=== PATIENT | male | born 1995 | race Two or more races ===

== ENCOUNTER 2018-03-17 14:54 | Emergency (ER) | payer SELFPAY ==
[~2018-03-17] VITALS: Ht 175.3 cm; Wt 49.6 kg
[2018-03-17 15:13] VITALS: BP 120/77
== END 2018-03-17 16:29 | disposition home or self-care (01) ==
LOC: ED 16:23
DX: S02.32XA Fracture of orbital floor, left side, initial encounter for closed fracture (principal); H11.32 Conjunctival hemorrhage, left eye; W18.39XA Other fall on same level, initial encounter; Y93.79 Activity, other specified sports and athletics; Y92.89 Other specified places as the place of occurrence of the external cause; Y99.8 Other external cause status; Z90.49 Acquired absence of other specified parts of digestive tract
CPT/HCPCS: 99281